=== PATIENT | male | born 1970 | race Hispanic/Latino ===

== ENCOUNTER 2016-11-05 04:20 | Emergency (ER) | payer OTHER ==
[2016-11-05] MEDS ORDERED: Promethazine HCl 25 MG/ML VIAL ONE (04:40)
--- NOTE | 2016-11-05 04:49 | ERRECORD ---
[facility] EMERGENCY RECORD HPI NAUSEA/VOMITING/DIARRHEA (04:39 SHAN) CHIEF COMPLAINT: Patient presents for evaluation of nausea, Patient presents for evaluation of vomiting, Patient presents for evaluation of took zofran odt and threw it up. HISTORIAN: History provided by patient, History provided by patient's spouse. TIME COURSE: Sudden onset of symptoms. ASSOCIATED WITH MALE: No associated symptoms. ROS (04:40 SHAN) CONSTITUTIONAL: Negative constitutional review of systems. EYES: Negative eye review of systems. ENT: Negative ears, nose, throat review of systems. CARDIOVASCULAR: Negative cardiovascular review of systems. RESPIRATORY: Negative respiratory review of systems. GI: Historian reports nausea, reports vomiting. MUSCULOSKELETAL: Negative musculoskeletal review of systems. SKIN: Negative skin review of systems. NEUROLOGIC: Negative neurologic review of systems. NOTES: All systems reviewed, negative except as described above. PAST MEDICAL HISTORY (04:31 EPIE) MEDICAL HISTORY: Flu vaccine not up to date, Tetanus immunization up to date, Pneumococcal vaccine not up to date, Past medical history includes history of hypertension. MALE SURGICAL HISTORY: Surgical history of hernia repair. PSYCHIATRIC HISTORY: No previous psychiatric history. SOCIAL HISTORY: Patient has no smoking history, Patient denies alcohol use, Patient denies drug use. KNOWN ALLERGIES No Known Drug Allergies CURRENT MEDICATIONS fiber: TABLET, CHEWABLE : Strength - 2 gram : ORAL Patient Dose: UNK. (04:29 EPIE) lisinopril: TABLET : Strength - 10 mg : ORAL Patient Dose: 10 mg Oral once a day. (04:30 EPIE) VITAL SIGNS VITAL SIGNS: BP: 132/92, Pulse: 82, Resp: 18 (Non-Labored), Pain: 0, O2 sat: 98 on Room Air, Time: 11/05/2016 04:30. (04:30 EPIE) BP: 132/76, Pulse: 73, Resp: 18 (Non-Labored), Temp: 98.2 (Oral), Pain: 0, O2 sat: 98 on Room Air, Time: 11/05/2016 04:59. (04:59 EPIE) &a-1R&a+25V*p+0X*y3142Y*c202B*c15G*c2P*p-0X&a-25V&a+1R Name: Roberth Arellano : 1970 3 MedRec: [id number] AcctNum: [id number] Prepared: Sat Nov 05, 2016 05:09 by Interface Page 1 of 2 pMD [facility] EMERGENCY RECORD PHYSICAL EXAM (04:40 SHAN) CONSTITUTIONAL: Patient afebrile, Pulse normal, Blood pressure normal, Respiratory rate normal, Normal pulse oximetry, Patient appears non toxic, Patient appears pain free, Patient alert and oriented to person, place and time, Nursing notes reviewed. HEAD: Head exam included findings of head atraumatic, normocephalic. EYES: Eye exam included findings of eyelids normal to inspection, Pupils equally round and reactive to light, Extraocular muscles intact. ENT: Pharynx exam normal, Uvula exam normal, Tonsil exam normal. NECK: Neck exam included findings of normal range of motion, Trachea midline. RESPIRATORY CHEST: Respiratory and chest exam normal. CARDIOVASCULAR: Cardiovascular exam included findings of heart rate regular rate and rhythm, Heart sounds normal. ABDOMEN MALE: Abdominal exam included findings of abdomen nontender, Bowel sounds normal, Nausea and vomiting by history. BACK: Back exam normal. UPPER EXTREMITY: Upper extremity exam included findings of inspection normal, Range of motion normal. NEURO: Neuro exam normal. SKIN: Skin exam normal. MEDICATION ADMINISTRATION SUMMARY Drug Name: Phenergan injection, Dose Ordered: 25 mg, Route: Intramuscular, Status: Given, Time: 04:44 11/05/2016, Detailed record available in Medication Service section. PROBLEM LIST No recorded problems DIAGNOSIS (04:42 SHAN) FINAL: PRIMARY: Acute Gastroenteritis - presumed infectious. PRESCRIPTION No recorded prescriptions DISPOSITION PATIENT: Disposition Type: Discharge, Disposition: *Discharge Home. (04:42 SHAN) Patient left the department. (05:08 CHETAN) Do: CHETAN=ESTEFANI El, Viky PITTS=MD Kourtney, Beny &a-1R&a+25V*p+0X*d2082T*c202B*c15G*c2P*p-0X&a-25V&a+1R Name: Roberth Arellano : 1970 3 MedRec: [id number] AcctNum: [id number] Prepared: Sat Nov 05, 2016 05:09 by Interface Page 2 of 2 pMD MTDD
--- NOTE | 2016-11-05 04:54 | PICIS ---
[facility] EMERGENCY RECORD TRIAGE ([facility] Nov 05, 2016 04:27 EPIE) TRIAGE NOTES: Pt states that he has been vomiting since 2300 last night. No other symptoms. Reports no one else sick at home. ([facility] Nov 05, 2016 04:27 EPIE) PATIENT: NAME: Roberth Arellano, AGE: 45, GENDER: male, : Sun 1970, TIME OF GREET: Sat Nov 05, 2016 04:21, PREFERRED LANGUAGE: Latvian, ETHNICITY: or , ECODE BILLING MAP: [place] [facility], SSN: [id number], Zip Code: [address], KG WEIGHT: 117.93, PHONE: , , , PERSON ID: [id number], PCP: MD Richard David. ([facility] Nov 05, 2016 04:27 EPIE) COMPLAINT: Nausea and Vomiting. ([facility] Nov 05, 2016 04:27 EPIE) ADMISSION: URGENCY: 3 Urgent, ADMISSION SOURCE: Home, TRANSPORT: CAR, BED: TRIAGE. ([facility] Nov 05, 2016 04:27 EPIE) TRIAGE SCREENING: Patient denies suicidal ideation, Patient denies presence of domestic violence. (04:31 EPIE) TREATMENTS IN PROGRESS: Treatments given Prehospital: zofran 4mg@ 0300, dramamine @ 0200. (04:31 EPIE) PROVIDERS: TRIAGE NURSE: Viky El RN. ([facility] Nov 05, 2016 04:27 EPIE) KNOWN ALLERGIES No Known Drug Allergies CURRENT MEDICATIONS fiber: TABLET, CHEWABLE : Strength - 2 gram : ORAL Patient Dose: UNK. (04:29 EPIE) lisinopril: TABLET : Strength - 10 mg : ORAL Patient Dose: 10 mg Oral once a day. (04:30 EPIE) VITAL SIGNS VITAL SIGNS: BP: 132/92, Pulse: 82, Resp: 18 (Non-Labored), Pain: 0, O2 sat: 98 on Room Air, Time: 11/05/2016 04:30. (04:30 EPIE) BP: 132/76, Pulse: 73, Resp: 18 (Non-Labored), Temp: 98.2 (Oral), Pain: 0, O2 sat: 98 on Room Air, Time: 11/05/2016 04:59. (04:59 EPIE) NURSING ASSESSMENT: ABDOMEN (04:34 EPIE) CONSTITUTIONAL: Patient arrives ambulatory, Gait steady, History obtained from patient, Patient appears comfortable, Patient cooperative, Patient alert, Oriented to person, place and time, Skin warm, Skin dry, Skin normal in color, Mucous membranes pink, Mucous membranes moist, Patient is well-groomed, Pt states that he has been vomiting since 2300 last night. No other symptoms. Reports no one else sick at home. Reports eating vegetable soup with beef that other did not eat. PAIN: Patient rates pain as 0 out of 10. ABDOMEN: Abdomen assessment findings include abdomen symmetrical, Associated with nausea, Associated with vomiting, &a-1R&a+25V*p+0X*n8415S*c202B*c15G*c2P*p-0X&a-25V&a+1R Name: Roberth Arellano : 1970 M45 MedRec: [id number] AcctNum: [id number] Prepared: Sat Nov 05, 2016 05:15 by Interface Page 1 of 4 pMD [facility] EMERGENCY RECORD Number of times: 6-7, no associated diarrhea. GENITOURINARY MALE: no associated urinary complaints. NURSING PROCEDURE: DISCHARGE NOTE (05:07 EPIE) DISCHARGE: Patient discharged to home, ambulating without assistance, family driving, accompanied by //partner, Summary of Care printed/ provided, Discharge instructions given to patient, Simple or moderate discharge teaching performed, Above person(s) verbalized understanding of discharge instructions and follow-up care. BELONGINGS: Belongings and valuables with patient upon arrival to the Emergency Department include:, Belongings and valuables with patient at time of discharge include:, Belongings remain with patient, Valuables remain with patient. MEDICATION ADMINISTRATION SUMMARY Drug Name: Phenergan injection, Dose Ordered: 25 mg, Route: Intramuscular, Status: Given, Time: 04:44 11/05/2016, Detailed record available in Medication Service section. MEDICATION SERVICE (04:44 [facility]) Phenergan injection: Order: Phenergan injection (promethazine HCl) - Dose: 25 mg : Intramuscular Schedule: Now Ordered by: Beny Oconnell MD Entered by: Beny Oconnell MD Sat Nov 05, 2016 04:39 , Acknowledged by: Jaleesa Hooker RN Sat Nov 05, 2016 04:40 Documented as given by: Jaleesa Hooker RN Sat Nov 05, 2016 04:44 Patient, Medication, Dose, Route and Time verified prior to administration. IM medication, Amount given: 25mg, Medication administered to right buttock, Patient appears Awake and alert- acceptable, Correct patient, time, route, dose and medication confirmed prior to administration, Patient advised of actions and side-effects prior to administration, Allergies confirmed and medications reviewed prior to administration. HPI NAUSEA/VOMITING/DIARRHEA (04:39 SHAN) CHIEF COMPLAINT: Patient presents for evaluation of nausea, Patient presents for evaluation of vomiting, Patient presents for evaluation of took zofran odt and threw it up. HISTORIAN: History provided by patient, History provided by patient's spouse. TIME COURSE: Sudden onset of symptoms. ASSOCIATED WITH MALE: No associated symptoms. ROS (04:40 SHAN) CONSTITUTIONAL: Negative constitutional review of systems. EYES: Negative eye review of systems. &a-1R&a+25V*p+0X*n6632U*c202B*c15G*c2P*p-0X&a-25V&a+1R Name: Roberth Arellano : 1970 M45 MedRec: [id number] AcctNum: [id number] Prepared: Sat Nov 05, 2016 05:15 by Interface Page 2 of 4 pMD [facility] EMERGENCY RECORD ENT: Negative ears, nose, throat review of systems. CARDIOVASCULAR: Negative cardiovascular review of systems. RESPIRATORY: Negative respiratory review of systems. GI: Historian reports nausea, reports vomiting. MUSCULOSKELETAL: Negative musculoskeletal review of systems. SKIN: Negative skin review of systems. NEUROLOGIC: Negative neurologic review of systems. NOTES: All systems reviewed, negative except as described above. PAST MEDICAL HISTORY (04:31 EPIE) MEDICAL HISTORY: Flu vaccine not up to date, Tetanus immunization up to date, Pneumococcal vaccine not up to date, Past medical history includes history of hypertension. MALE SURGICAL HISTORY: Surgical history of hernia repair. PSYCHIATRIC HISTORY: No previous psychiatric history. SOCIAL HISTORY: Patient has no smoking history, Patient denies alcohol use, Patient denies drug use. PHYSICAL EXAM (04:40 SHAN) CONSTITUTIONAL: Patient afebrile, Pulse normal, Blood pressure normal, Respiratory rate normal, Normal pulse oximetry, Patient appears non toxic, Patient appears pain free, Patient alert and oriented to person, place and time, Nursing notes reviewed. HEAD: Head exam included findings of head atraumatic, normocephalic. EYES: Eye exam included findings of eyelids normal to inspection, Pupils equally round and reactive to light, Extraocular muscles intact. ENT: Pharynx exam normal, Uvula exam normal, Tonsil exam normal. NECK: Neck exam included findings of normal range of motion, Trachea midline. RESPIRATORY CHEST: Respiratory and chest exam normal. CARDIOVASCULAR: Cardiovascular exam included findings of heart rate regular rate and rhythm, Heart sounds normal. ABDOMEN MALE: Abdominal exam included findings of abdomen nontender, Bowel sounds normal, Nausea and vomiting by history. BACK: Back exam normal. UPPER EXTREMITY: Upper extremity exam included findings of inspection normal, Range of motion normal. NEURO: Neuro exam normal. SKIN: Skin exam normal. EVENTS TRANSFER: Triage to Emergency Triage. (Sat Nov 05, 2016 04:27 EPIE) Emergency Triage to Emergency Room -03. (04:30 EPIE) &a-1R&a+25V*p+0X*k5439M*c202B*c15G*c2P*p-0X&a-25V&a+1R Name: Roberth Arellano : 1970 M45 MedRec: [id number] AcctNum: [id number] Prepared: [facility] Nov 05, 2016 05:15 by Interface Page 3 of 4 pMD [facility] EMERGENCY RECORD Removed from Emergency Emergency Room -03. (05:08 EPIE) PROBLEM LIST No recorded problems DIAGNOSIS (04:42 SHAN) FINAL: PRIMARY: Acute Gastroenteritis - presumed infectious. DISPOSITION PATIENT: Disposition Type: Discharge, Disposition: *Discharge Home. (04:42 SHAN) Patient left the department. (05:08 EPIE) INSTRUCTION (04:43 SHAN) DISCHARGE: GASTROENTERITIS, VIRAL (8Y-ADULT). FOLLOWUP: MD Hilary, [place], [facility], [address] [place] [address], [facility], [place] [address], [place], . SPECIAL: 1. rest tonight; take in extra fluids 2. if symptoms worsen, return for more extensive evaluation and treatement. PRESCRIPTION No recorded prescriptions IMAGING (05:08 CHETAN) *DISCHARGE INSTRUCTIONS RECEIPT: Image captured from scanner. *SUPPLY CHARGE SHEET: Image captured from scanner. ADMIN (04:43 HONG) DIGITAL SIGNATURE: MD Oconnell Stanley. Do: CHETAN=ESTEFANI El, Viky HONG=MD Oconnell Stanley &a-1R&a+25V*p+0X*z0462G*c202B*c15G*c2P*p-0X&a-25V&a+1R Name: Roberth Arellano : 1970 M45 MedRec: [id number] AcctNum: [id number] Prepared: Tae Nov 05, 2016 05:15 by Interface Page 4 of 4 pMD MTDD
== END 2016-11-05 05:07 | disposition home or self-care (01) ==
LOC: NAV ERS 04:20
DX: K52.9 Noninfective gastroenteritis and colitis, unspecified (principal); I10 Essential (primary) hypertension
CPT/HCPCS: 96372; J2550

== ENCOUNTER 2018-07-30 02:47 | Emergency (ER) | payer OTHER ==
[2018-07-30] MEDS ORDERED: Ondansetron HCl/PF 4 MG/2 ML Vial ONE ×3 (03:25→04:01)
[2018-07-30] MEDS ORDERED: Sodium Chloride 0.9% 1,000 ML ONE (03:25)
[2018-07-30 03:42] LABS: Eosinophils 2 % (0-10); Hemoglobin 16.1 g/dL (14.0-18.0); Lymphocytes 12 % (21-51); MDiff Complete? YES; Mean Corpuscular HGB CONC 31.4 g/dL (32.0-36.0); Mean Corpuscular Hemoglobin 27.5 pg (27.0-31.0); Mean Corpuscular Volume 87.4 fL (78.0-98.0); Mean Platelet Volume 8.3 fL (7.4-10.4); Monocytes 4 % (0-10); Neutrophil 82 % (42-75); PLT Morphology Comment Appears Adequate; Platelet Count 246 thou/uL (130-400); RBC Distribution Width 12.2 % (11.5-14.5); RBC Morphology Normal; Red Blood Cell (RBC) Count 5.88 mill/uL (4.70-6.10); White Blood Cell (WBC) Count 11.3 thou/uL (4.8-10.8)
[2018-07-30 03:50] LABS: ALT (SGPT) 22 U/L (8-55); AST (SGOT) 15 U/L (5-34); Albumin 4.3 g/dL (3.5-5.0); Alkaline Phosphatase 61 U/L (40-150); Anion Gap 15 mmol/L (10-20); BUN (Urea Nitrogen) 14 mg/dL (8.9-20.6); Bilirubin, Total 0.8 mg/dL (0.2-1.2); Calc. Creatinine Clearance 0 mL/min (70-130); Carbon Dioxide 23 mmol/L (22-29); Chloride 102 mmol/L (98-107); Estimated GFR-MDRD 88; Globulin 3.7 g/dL (2.4-3.5); Glucose 126 mg/dL (70-105); Lipase 16 U/L (8-78); Potassium 4.2 mmol/L (3.5-5.1); Sodium 136 mmol/L (136-145)
[2018-07-30] MEDS ORDERED: Promethazine HCl 25 MG/ML VIAL ONE (04:05)
[2018-07-30 05:09] LABS: Bilirubin Negative (Negative); Blood, Urine Small (Negative); Clarity Clear (Clear); Glucose, Urine (Dipstick) Negative (Negative); Leukocyte Negative (Negative); Nitrite Negative (Negative); Protein, Urine (Dipstick) Negative (Neg-Trace); Urobilinogen 0.2 mg/dL (0.2-1.0); pH, Urine 5.5 (5.0-9.0)
[2018-07-30 05:10] LABS: Bacteria/HPF None Seen HPF (None Seen); Squamous Epithelial 0-3 HPF (0-3); WBC/HPF None Seen HPF (0-3)
== END 2018-07-30 05:28 | disposition home or self-care (01) ==
LOC: NAV ERS 02:47
DX: R11.2 Nausea with vomiting, unspecified (principal); R10.13 Epigastric pain; E78.5 Hyperlipidemia, unspecified; I10 Essential (primary) hypertension; Z79.899 Other long term (current) drug therapy
CPT/HCPCS: 36415; 80053; 81003; 81015; 83690; 85025; 93005; 94760; 96361; 96372; 96374; 96376; J2405; J2550; J7050

== ENCOUNTER 2020-03-22 22:57 | Emergency (ER) | payer OTHER ==
[2020-03-22] MEDS ORDERED: Promethazine HCl 25 MG/ML VIAL ONE (23:27)
[2020-03-22] MEDS ORDERED: Ondansetron ODT 4 MG TAB ONE (23:27)
== END 2020-03-23 00:10 | disposition home or self-care (01) ==
LOC: NAV ERS 22:57
DX: R11.2 Nausea with vomiting, unspecified (principal); E78.5 Hyperlipidemia, unspecified; E78.00 Pure hypercholesterolemia, unspecified; I10 Essential (primary) hypertension; Z87.442 Personal history of urinary calculi; Z79.899 Other long term (current) drug therapy
CPT/HCPCS: 96372; 99283; J2550; Q0162